=== PATIENT | male | born 1945 | race Caucasian/White ===

== ENCOUNTER → 2017-04-25 | Outpatient (CLI) | payer OTHER | LOC: BMCIMAGING 14:42 | PROVIDERS: ATTEND Family Medicine | DX: M79.644 Pain in right finger(s) (principal); S22.32XA Fracture of one rib, left side, initial encounter for closed fracture | CPT/HCPCS: 71101-PO ==

== ENCOUNTER → 2017-05-03 | Outpatient (CLI) | payer OTHER ==
[~2017-05-03] MED LIST: IOPAMIDOL (ISOVUE-300) 150 ML BTL ONE
== END ==
LOC: FIMAGING 12:28
PROVIDERS: ATTEND Physician Assistant Medical
DX: N32.89 Other specified disorders of bladder (principal); N20.0 Calculus of kidney; N28.1 Cyst of kidney, acquired
CPT/HCPCS: 74178; Q9967

== ENCOUNTER → 2017-11-14 | Outpatient (CLI) | payer OTHER | LOC: FIMAGING 13:49 | PROVIDERS: ATTEND Specialist | DX: N20.0 Calculus of kidney (principal) ==

== ENCOUNTER → 2018-07-10 | Outpatient (CLI) | payer OTHER | LOC: BMCIMAGING 14:16 | PROVIDERS: ATTEND Family Medicine | DX: S62.320A Displaced fracture of shaft of second metacarpal bone, right hand, initial encounter for closed fracture (principal); Y93.23 Activity, snow (alpine) (downhill) skiing, snowboarding, sledding, tobogganing and snow tubing ==

== ENCOUNTER → 2018-08-05 | Outpatient (CLI) | payer OTHER | LOC: BMCIMAGING 12:40 | PROVIDERS: ATTEND Orthopaedic Surgery Hand Surgery | DX: S62.91XA Unspecified fracture of right hand, initial encounter for closed fracture (principal) ==

== ENCOUNTER → 2018-09-02 | Outpatient (CLI) | payer OTHER | LOC: BMCIMAGING 13:50 ==